=== PATIENT | male | born 1955 | race Caucasian/White ===

== ENCOUNTER 2019-03-03 01:35 | Emergency (ER) | payer OTHER, MEDICARE, BC ==
[2019-03-03] MEDS ORDERED: CLOPIDOGREL75 M2 PO (02:11)
[2019-03-03] MEDS ORDERED: ESOMEPRAZOLE MA40 M1 PO (02:11)
[2019-03-03] MEDS ORDERED: SYNTHROID0.075 MG PO (02:11)
[2019-03-03] MEDS ORDERED: ASPIRIN ADULT L81 M3 PO (02:11)
[2019-03-03] MEDS ORDERED: LISINOPRIL20 MG PO (02:12)
[2019-03-03] MEDS ORDERED: FUROSEMIDE40 MG PO (02:12)
[2019-03-03] MEDS ORDERED: NOVOLOG FLEX100 U/ML SQ (02:12)
[2019-03-03] MEDS ORDERED: NITROGLYCE0.4 MG/Ac2 SL (02:12)
[2019-03-03] MEDS ORDERED: BASAGLAR K100 UNIT/1 SQ (02:12)
[2019-03-03] MEDS ORDERED: FLORAJEN A20 Billion PO (02:13)
[2019-03-03] MEDS ORDERED: REPATHA SU140 MG/1 M SQ (02:13)
[2019-03-03] MEDS ORDERED: VITAMIN D32000 UNIT PO (02:14)
[2019-03-03 02:46] VITALS: BP 125/65
== END 2019-03-03 02:46 | disposition home or self-care (01) ==
LOC: ED 01:35
DX: S90.02XA Contusion of left ankle, initial encounter (principal); S91.202A Unspecified open wound of left great toe with damage to nail, initial encounter; I10 Essential (primary) hypertension; E11.42 Type 2 diabetes mellitus with diabetic polyneuropathy; I25.10 Atherosclerotic heart disease of native coronary artery without angina pectoris; E03.9 Hypothyroidism, unspecified; Z79.4 Long term (current) use of insulin; Z88.7 Allergy status to serum and vaccine; W01.0XXA Fall on same level from slipping, tripping and stumbling without subsequent striking against object, initial encounter; Y92.009 Unspecified place in unspecified non-institutional (private) residence as the place of occurrence of the external cause

== ENCOUNTER 2020-08-09 10:39 | Emergency (ER) | payer MEDICARE, OTHER ==
[~2020-08-09 10:39] MED LIST: ASPIRIN ADULT L81 M3 PO; BASAGLAR K100 UNIT/1 SQ; CLOPIDOGREL75 M2 PO; ESOMEPRAZOLE MA40 M1 PO; FLORAJEN A20 Billion PO; FUROSEMIDE40 MG PO; LISINOPRIL20 MG PO; NITROGLYCE0.4 MG/Ac2 SL; NOVOLOG FLEX100 U/ML SQ; REPATHA SU140 MG/1 M SQ; SYNTHROID0.075 MG PO; VITAMIN D32000 UNIT PO
[2020-08-09 11:22] LABS: EOS # 0.2 (0.04-0.40); EOS % 2.2 % (0.0-4.0); HEMATOCRIT 45.7 % (42.0-52.0); HEMOGLOBIN 14.3 g/dL (13.5-18.0); LYMPH# 2.6 (1.50-4.00); MEAN CELL VOLUME 91 fl (78-100); MEAN CORPUSCULAR HEMOGLOBIN 29 pg (27-31); MEAN CORPUSCULAR HGB CONC 31 g/dL (33-37); MEAN PLATELET VOLUME 9.5 fl (7.4-10.4); NEU # 6.3 (1.40-6.50); PLATELET COUNT 324 K/mm3 (130-400); RED BLOOD COUNT 5.02 M/mm3 (4.20-5.60); WHITE BLOOD COUNT 10.3 K/mm3 (4.8-10.8)
[2020-08-09 11:23] LABS: CALCIUM 8.6 mg/dL (8.3-10.5); POTASSIUM 3.8 mmol/L (3.5-5.1); TOTAL BILIRUBIN 0.9 mg/dL (0.2-1.2); TOTAL PROTEIN 6.4 g/dL (6.2-8.1)
[2020-08-09 11:58] VITALS: BP 112/72
== END 2020-08-09 11:58 | disposition short-term general hospital (02) ==
LOC: EDBD 10:39 → ED 10:39
PROVIDERS: Physician Assistant
DX: I46.9 Cardiac arrest, cause unspecified (principal); I25.2 Old myocardial infarction; Z20.822 Contact with and (suspected) exposure to COVID-19; Z95.1 Presence of aortocoronary bypass graft; Z98.61 Coronary angioplasty status; Z88.7 Allergy status to serum and vaccine; Z79.02 Long term (current) use of antithrombotics/antiplatelets; Z79.4 Long term (current) use of insulin; Z79.82 Long term (current) use of aspirin; Z79.890 Hormone replacement therapy
CPT/HCPCS: J1644; J7030

== ENCOUNTER → 2020-09-10 | Outpatient (CLI) | payer MEDICARE, OTHER ==
[~2020-09-10] MED LIST changes: +AMIODARONE200 MG PO
== END ==
LOC: LAB 08:52
DX: Z01.812 Encounter for preprocedural laboratory examination (principal); Z20.822 Contact with and (suspected) exposure to COVID-19

== ENCOUNTER 2020-10-08 11:01 | Emergency (ER) | payer MEDICARE, OTHER ==
[~2020-10-08 11:01] MED LIST changes: -AMIODARONE200 MG PO
[2020-10-08 11:08] VITALS: BP 123/72
[2020-10-08] MEDS ORDERED: AMIODARONE200 MG PO (11:51)
== END 2020-10-08 12:15 | disposition home or self-care (01) ==
LOC: ED 11:01
DX: S51.811A Laceration without foreign body of right forearm, initial encounter (principal); I48.91 Unspecified atrial fibrillation; I25.10 Atherosclerotic heart disease of native coronary artery without angina pectoris; E11.9 Type 2 diabetes mellitus without complications; Z79.01 Long term (current) use of anticoagulants; Z88.7 Allergy status to serum and vaccine; Z79.82 Long term (current) use of aspirin; Z79.4 Long term (current) use of insulin; W26.8XXA Contact with other sharp object(s), not elsewhere classified, initial encounter; Y92.009 Unspecified place in unspecified non-institutional (private) residence as the place of occurrence of the external cause

== ENCOUNTER → 2021-06-02 | Outpatient (CLI) | payer MEDICARE, OTHER ==
[~2021-06-02] MED LIST changes: +AMIODARONE200 MG PO; +ELIQUIS5 MG PO; +FAMOTIDINE20 MG PO; +FARXIGA10 MG PO; +ISOSORBIDE MONO60 M2 PO; +LEVOTHYROXIN0.075 MG PO; +LISINOPRIL10 MG PO; +METOPROLOL SUCC25 M1 PO; +PANTOPRAZOLE SO40 MG PO; +PRALUENT P150 MG/1 M SQ; +ROXICODONE 55 MG/TAB PO; +TIZANIDINE2 MG PO; +ZYLOPRIM 100MG100 MG PO
[2021-06-02 15:04] LABS: HEMATOCRIT 36.7 % (42.0-52.0); HEMOGLOBIN 12.1 g/dL (13.5-18.0); MEAN PLATELET VOLUME 8.6 fl (7.4-10.4); RED BLOOD COUNT 4.19 M/mm3 (4.20-5.60); RED CELL DISTRIBUTION WIDTH 13.8 % (11.5-14.5); WHITE BLOOD COUNT 10.2 K/mm3 (4.8-10.8)
[2021-06-02 15:09] LABS: ALBUMIN 3.3 g/dL (3.4-4.8); POTASSIUM 4.4 mmol/L (3.5-5.1)
[2021-06-02 15:11] LABS: CALCIUM 9.4 mg/dL (8.3-10.5)
[2021-06-02 15:12] LABS: TOTAL PROTEIN 6.6 g/dL (6.2-8.1)
[2021-06-02 15:14] LABS: TOTAL BILIRUBIN 0.6 mg/dL (0.2-1.2)
== END ==
LOC: LAB 14:08
PROVIDERS: Internal Medicine Infectious Disease
DX: T84.53XA Infection and inflammatory reaction due to internal right knee prosthesis, initial encounter (principal)

== ENCOUNTER → 2021-06-09 | Outpatient (CLI) | payer MEDICARE, OTHER ==
[2021-06-09 15:09] LABS: HEMOGLOBIN 11.8 g/dL (13.5-18.0); MEAN PLATELET VOLUME 8.5 fl (7.4-10.4); RED BLOOD COUNT 4.14 M/mm3 (4.20-5.60); RED CELL DISTRIBUTION WIDTH 13.8 % (11.5-14.5)
[2021-06-09 15:13] LABS: ALBUMIN 3.2 g/dL (3.4-4.8); POTASSIUM 4.2 mmol/L (3.5-5.1)
[2021-06-09 15:16] LABS: TOTAL PROTEIN 6.4 g/dL (6.2-8.1)
== END ==
LOC: LAB 09:39
PROVIDERS: Internal Medicine Infectious Disease
DX: T84.53XA Infection and inflammatory reaction due to internal right knee prosthesis, initial encounter (principal)

== ENCOUNTER → 2021-06-16 | Outpatient (CLI) | payer MEDICARE, OTHER ==
[2021-06-16 17:19] LABS: HEMATOCRIT 36.6 % (42.0-52.0); HEMOGLOBIN 11.7 g/dL (13.5-18.0); MEAN PLATELET VOLUME 8.8 fl (7.4-10.4); RED BLOOD COUNT 4.15 M/mm3 (4.20-5.60); RED CELL DISTRIBUTION WIDTH 14.2 % (11.5-14.5); WHITE BLOOD COUNT 6.5 K/mm3 (4.8-10.8)
[2021-06-16 17:23] LABS: ALBUMIN 3.4 g/dL (3.4-4.8); POTASSIUM 4.2 mmol/L (3.5-5.1)
[2021-06-16 17:24] LABS: CALCIUM 9.1 mg/dL (8.3-10.5)
[2021-06-16 17:25] LABS: TOTAL PROTEIN 6.2 g/dL (6.2-8.1)
[2021-06-16 17:27] LABS: TOTAL BILIRUBIN 0.4 mg/dL (0.2-1.2)
== END ==
LOC: LAB 15:00
PROVIDERS: Internal Medicine Infectious Disease
DX: R53.83 Other fatigue (principal)

== ENCOUNTER → 2021-06-23 | Outpatient (CLI) | payer MEDICARE, OTHER ==
[2021-06-23 14:44] LABS: HEMATOCRIT 38.7 % (42.0-52.0); HEMOGLOBIN 12.2 g/dL (13.5-18.0); MEAN PLATELET VOLUME 8.8 fl (7.4-10.4); RED BLOOD COUNT 4.37 M/mm3 (4.20-5.60); RED CELL DISTRIBUTION WIDTH 14.4 % (11.5-14.5); WHITE BLOOD COUNT 5.2 K/mm3 (4.8-10.8)
[2021-06-23 14:53] LABS: ALBUMIN 3.5 g/dL (3.4-4.8); POTASSIUM 4.7 mmol/L (3.5-5.1)
[2021-06-23 14:54] LABS: CALCIUM 8.8 mg/dL (8.3-10.5)
[2021-06-23 14:56] LABS: TOTAL PROTEIN 6.4 g/dL (6.2-8.1)
[2021-06-23 14:57] LABS: TOTAL BILIRUBIN 0.4 mg/dL (0.2-1.2)
== END ==
LOC: LAB 14:32
PROVIDERS: Internal Medicine Infectious Disease
DX: R53.83 Other fatigue (principal)

== ENCOUNTER → 2021-06-30 | Outpatient (CLI) | payer MEDICARE, OTHER ==
[2021-06-30 15:00] LABS: BASO # 0.03 K/mm3 (0.02-0.10); EOS # 0.19 K/mm3 (0.04-0.40); EOS % 2.8 % (0.0-4.0); HEMATOCRIT 38.8 % (42.0-52.0); HEMOGLOBIN 12.3 g/dL (13.5-18.0); LYMPH# 0.79 K/mm3 (1.50-4.00); MEAN CELL VOLUME 87 fl (78-100); MEAN CORPUSCULAR HEMOGLOBIN 28 pg (27-31); MEAN CORPUSCULAR HGB CONC 32 g/dL (33-37); MEAN PLATELET VOLUME 8.6 fl (7.4-10.4); MONO # 0.56 K/mm3 (0.20-0.80); NEU # 5.12 K/mm3 (1.40-6.50); PLATELET COUNT 289 K/mm3 (130-400); RED BLOOD COUNT 4.45 M/mm3 (4.20-5.60); WHITE BLOOD COUNT 6.7 K/mm3 (4.8-10.8)
[2021-06-30 15:04] LABS: ALBUMIN 3.6 g/dL (3.4-4.8)
[2021-06-30 15:05] LABS: CALCIUM 9.8 mg/dL (8.3-10.5)
[2021-06-30 15:06] LABS: TOTAL PROTEIN 6.6 g/dL (6.2-8.1)
[2021-06-30 15:08] LABS: TOTAL BILIRUBIN 0.5 mg/dL (0.2-1.2)
== END ==
LOC: LAB 12:14 → AMSURD 12:14
PROVIDERS: Internal Medicine Infectious Disease
DX: T84.53XA Infection and inflammatory reaction due to internal right knee prosthesis, initial encounter (principal)

== ENCOUNTER → 2021-07-07 | Outpatient (CLI) | payer MEDICARE, OTHER ==
[~2021-07-07] MED LIST changes: +ADULT LOW DOSE81 MG PO; +CEPHALEXIN500 M1 PO; +FLORAJEN ACIDO1 EACH PO; +METOPROLOL SUCC50 M1 PO
[2021-07-07 13:28] LABS: HEMATOCRIT 40.2 % (42.0-52.0); HEMOGLOBIN 12.8 g/dL (13.5-18.0); MEAN PLATELET VOLUME 9.2 fl (7.4-10.4); RED BLOOD COUNT 4.6 M/mm3 (4.20-5.60); RED CELL DISTRIBUTION WIDTH 15.4 % (11.5-14.5); WHITE BLOOD COUNT 7.9 K/mm3 (4.8-10.8)
[2021-07-07 13:43] LABS: ALBUMIN 3.7 g/dL (3.4-4.8); POTASSIUM 4.6 mmol/L (3.5-5.1)
[2021-07-07 13:44] LABS: CALCIUM 9.2 mg/dL (8.3-10.5)
[2021-07-07 13:46] LABS: TOTAL PROTEIN 6.5 g/dL (6.2-8.1)
[2021-07-07 13:47] LABS: TOTAL BILIRUBIN 0.6 mg/dL (0.2-1.2)
== END ==
LOC: LAB 12:42
PROVIDERS: Internal Medicine Infectious Disease
DX: R53.83 Other fatigue (principal)

== ENCOUNTER 2021-11-21 11:04 | Emergency (ER) | payer MEDICARE, OTHER ==
[~2021-11-21] VITALS: Ht 193 cm; Wt 132.0 kg
[~2021-11-21 11:04] MED LIST changes: -ADULT LOW DOSE81 MG PO; -CEPHALEXIN500 M1 PO; -FLORAJEN ACIDO1 EACH PO; -METOPROLOL SUCC50 M1 PO
[2021-11-21] MEDS ORDERED: ADULT LOW DOSE81 MG PO (12:09)
[2021-11-21] MEDS ORDERED: METOPROLOL SUCC50 M1 PO (12:11)
[2021-11-21] MEDS ORDERED: ESOMEPRAZOLE MA40 M1 PO (12:13)
[2021-11-21] MEDS ORDERED: FLORAJEN ACIDO1 EACH PO (12:17)
[2021-11-21] MEDS ORDERED: CEPHALEXIN500 M1 PO (12:56)
[2021-11-21 13:03] VITALS: BP 92/63
== END 2021-11-21 13:03 | disposition home or self-care (01) ==
LOC: ED 11:04
DX: S61.011A Laceration without foreign body of right thumb without damage to nail, initial encounter (principal); Z88.7 Allergy status to serum and vaccine; W31.2XXA Contact with powered woodworking and forming machines, initial encounter
CPT/HCPCS: J0690; J2270; J2405

== ENCOUNTER → 2021-12-02 | Outpatient (CLI) | payer MEDICARE, OTHER ==
[~2021-12-02] MED LIST changes: +ADULT LOW DOSE81 MG PO; +CEPHALEXIN500 M1 PO; +FLORAJEN ACIDO1 EACH PO; +METOPROLOL SUCC50 M1 PO
== END ==
LOC: AMSURD 14:17 → LAB 14:17
DX: Z98.890 Other specified postprocedural states (principal)